=== PATIENT | male | born 1940 | race Caucasian/White ===

== ENCOUNTER 2018-10-28 10:11 | Day surgery (SDC) | payer MEDICARE, OTHER ==
[~2018-10-28] VITALS: Ht 172.7 cm; Wt 85.7 kg
[~2018-10-28 10:11] MED LIST: CIPRO 500MG TA500 MG PO; FLAGYL500 MG PO; FLOMAX 0.40.4 MG/CAP PO; FOLIC ACID 40400 MCG PO; GLUCOPHAGE500 MG/TAB PO; LEVEMIR FLEX100 U/ML SQ; MULTI VITAMINS1 TAB PO; PRILOSEC 20MG20 MG PO; ST JOHN S WOR PO; SULFACETAMIDE S15 M1 OP; ZESTRIL 20MG TA20 MG PO
[2018-10-28] MEDS ORDERED: LEXAPRO 5MG5 MG PO (10:46)
[2018-10-28] MEDS ORDERED: LOZOL 2.5M2.5 MG/TAB PO (10:46)
[2018-10-28] MEDS ORDERED: SYNTHROID0.05 MG/TA PO (10:47)
[2018-10-28] MEDS ORDERED: BASAGLAR K100 UNIT/1 SQ (10:47)
[2018-10-28] MEDS ORDERED: DEPO-TESTOS200 MG/M1 IM (10:48)
[2018-10-28 10:49] VITALS: BP 151/76; PULSE 70; TEMP 97.8
[2018-10-28 11:50] VITALS: BP 132/62; PULSE 66; TEMP 97.3
[2018-10-28 12:00] VITALS: BP 145/68; PULSE 65
[2018-10-28 12:15] VITALS: BP 133/78; PULSE 66
== END 2018-10-28 12:33 | disposition home or self-care (01) ==
LOC: SDCO 10:11
DX: R10.31 Right lower quadrant pain (principal); K57.30 Diverticulosis of large intestine without perforation or abscess without bleeding; K52.9 Noninfective gastroenteritis and colitis, unspecified; E11.9 Type 2 diabetes mellitus without complications; Z79.4 Long term (current) use of insulin; E03.9 Hypothyroidism, unspecified; K21.9 Gastro-esophageal reflux disease without esophagitis; I10 Essential (primary) hypertension; R42 Dizziness and giddiness; R26.81 Unsteadiness on feet; Z87.891 Personal history of nicotine dependence; Z79.899 Other long term (current) drug therapy; F41.9 Anxiety disorder, unspecified; F32.9 Major depressive disorder, single episode, unspecified
CPT/HCPCS: J2704; J7030

== ENCOUNTER 2020-08-05 11:10 | Outpatient (RCR) | payer MEDICARE, OTHER ==
[~2020-08-05 11:10] MED LIST changes: +BASAGLAR K100 UNIT/1 SQ; +DEPO-TESTOS200 MG/M1 IM; +LEXAPRO 5MG5 MG PO; +LOZOL 2.5M2.5 MG/TAB PO; +NORCO 325 MG-51 TAB PO; +SYNTHROID0.05 MG/TA PO
== END 2020-11-03 | disposition home or self-care (01) ==
LOC: WSST
DX: R41.81 Age-related cognitive decline (principal)

== ENCOUNTER 2022-01-13 03:50 | Emergency (ER) | payer MEDICARE, OTHER ==
[2022-01-13 03:51] VITALS: TEMP 97.7
[2022-01-13 04:18] LABS: BASO % 0.4 % (0.0-2.0); EOS % 0.4 % (0.0-4.0); GRAN # 6.6 K/mm3 (1.4-6.5); GRAN % 81.5 % (42.2-75.2); HEMATOCRIT 39.2 % (42.0-52.0); HEMOGLOBIN 12.8 g/dl (13.5-18.0); LYMPH % 12.3 % (20.0-51.0); MEAN CELL VOLUME 89 fl (80.0-100.0); MEAN CORPUSCULAR HEMOGLOBIN 29 pg (27-31); MEAN CORPUSCULAR HGB CONC 33 g/dl (33.0-37.0); MEAN PLATELET VOLUME 11.2 fl (7.4-10.4); MONO # 0.4 K/mm3 (0.1-0.6); PLATELET COUNT 170 K/mm3 (130-400); RED BLOOD COUNT 4.41 M/mm3 (4.20-5.60); REDCELL DISTRIBUTION WIDTH-CV 13.2 % (11.5-14.5)
[2022-01-13 04:34] LABS: ALBUMIN 4.3 gm/dL (3.4-4.8); BILIRUBIN,TOTAL 0.3 mg/dL (0.2-1.2); C-REACTIVE PROTEIN 0.39 mg/dL (0.00-0.50); CALCIUM 9.6 mg/dL (8.4-10.2); CREATININE, serum 1.12 mg/dL (0.72-1.25)
[2022-01-13 06:30] VITALS: BP 192/68; PULSE 72
== END 2022-01-13 06:30 | disposition home or self-care (01) ==
LOC: COL.ER 03:50
PROVIDERS: Emergency Medicine
DX: E11.649 Type 2 diabetes mellitus with hypoglycemia without coma (principal); Z79.4 Long term (current) use of insulin; Z79.84 Long term (current) use of oral hypoglycemic drugs

== ENCOUNTER 2022-04-10 10:45 | Outpatient (RCR) | payer MEDICARE, OTHER | END 2022-04-14 | disposition home or self-care (01) | LOC: WSPT | DX: G30.1 Alzheimer's disease with late onset (principal); F02.81 Dementia in other diseases classified elsewhere, unspecified severity, with behavioral disturbance; Z91.81 History of falling ==

== ENCOUNTER → 2022-05-14 | Outpatient (RCR) | payer MEDICARE, OTHER | END | disposition still patient (30) | LOC: WSPT | DX: G30.1 Alzheimer's disease with late onset (principal); F02.81 Dementia in other diseases classified elsewhere, unspecified severity, with behavioral disturbance; Z91.81 History of falling ==

== ENCOUNTER 2022-06-12 09:45 | Outpatient (RCR) | payer MEDICARE, OTHER | END 2022-06-14 | disposition home or self-care (01) | LOC: WSPT | DX: G30.1 Alzheimer's disease with late onset (principal); F02.81 Dementia in other diseases classified elsewhere, unspecified severity, with behavioral disturbance; Z91.81 History of falling ==

== ENCOUNTER → 2022-07-15 | Outpatient (RCR) | payer MEDICARE, OTHER | END | disposition home or self-care (01) | LOC: WSPT | DX: G30.1 Alzheimer's disease with late onset (principal); F02.81 Dementia in other diseases classified elsewhere, unspecified severity, with behavioral disturbance; Z91.81 History of falling ==

== ENCOUNTER → 2022-09-14 | Outpatient (RCR) | payer MEDICARE, OTHER | END | disposition home or self-care (01) | LOC: WSPT | DX: G30.1 Alzheimer's disease with late onset (principal); F02.818 Dementia in other diseases classified elsewhere, unspecified severity, with other behavioral disturbance; Z91.81 History of falling ==

== ENCOUNTER → 2023-02-12 | Outpatient (RCR) | payer MEDICARE, OTHER | END | disposition home or self-care (01) | LOC: WSPT | DX: R27.0 Ataxia, unspecified (principal); Z91.81 History of falling ==

== ENCOUNTER 2023-06-29 13:30 | Outpatient (RCR) | payer MEDICARE, OTHER ==
[~2023-06-29 13:30] MED LIST changes: +ZOFRAN ODT4 MG PO
== END 2023-07-15 | disposition home or self-care (01) ==
LOC: WSPT
DX: R27.0 Ataxia, unspecified (principal); Z91.81 History of falling